=== PATIENT | male | born 1960 | race Caucasian/White ===

== ENCOUNTER → 2024-02-19 12:31 | Outpatient (REF) | payer OTHER, SELFPAY ==
--- NOTE | 2024-02-19 12:39 | CA_ITS ---
Transthoracic Echocardiogram Patient (Last, First, Middle): Chris Petty A Gender: Male Date of : 1960 Age: 63 Procedure Date: 02/19/2024 Procedure Type: Transthoracic Echocardiogram Location: OP Height: 172.72 cm Weight: 71.67 kg BSA: 1.85 m2 Heart Rate: 57 bpm BP: 142 / 85 mmHg Game Attendant: TAE Referring MD: Wesley HAUSER Symptoms: R06.02 SOB, EXERTIONAL DYSPNEA R06.09 Study Quality: Adequate ECG Rhythm: Bradycardia Conclusions: - The left ventricular systolic function is normal. The calculated ejection fraction is 60% by biplane method. - No obvious valvular pathology seen on this study. Findings Left Ventricle Normal left ventricular cavity size. There is normal left ventricular wall thickness. The left ventricular systolic function is normal. The calculated ejection fraction is 60% by biplane method. There is no evidence of regional wall motion abnormalities. Diastolic function is normal for age. Right Ventricle Mildly increased right ventricular cavity size. There is normal right ventricular systolic function. Atria Both atria are normal in size. Aortic Valve There is a normal trileaflet aortic valve. There is no aortic valve stenosis. There is no aortic valve regurgitation. Mitral Valve The mitral valve appears normal. There is no mitral valve regurgitation. There is no mitral valve stenosis. Pulmonic Valve The pulmonic valve is likely normal. Tricuspid Valve Normal tricuspid valve structure. There is trace tricuspid valve regurgitation. There is no evidence of pulmonary hypertension. Great Vessels The asc aorta is normal in size. Venous The inferior vena cava is normal in size and collapses greater than 50% with inspiration. Pericardium/Pleural There is no evidence of pericardial effusion. Prior Study Comparison No prior study available for comparison. Recommendations, Care & Conclusions No obvious valvular pathology seen on this study. Measurements 2D Linear Measurements IVSd: 1.00 0.6-0.9/0.6-1.0 cm LVIDd: 4.55 3.9-5.3/4.2-5.9 cm LVIDd Index: 2.46 2.4-3.2/2.2-3.1 cm/m2 LVIDs: 2.21 2.0-3.6 cm LVPWd: 1.03 0.7-1.1 cm LA Diam: 3.30 2.7-3.8/3.0-4.0 cm LAIDs Index: 1.78 1.5-2.3 cm/m2 LV Mass: 197.65 67-162/88-224 g LV Mass Index: 106.84 43-95/49-115 g/m2 LVOT Diam: 1.90 3.0+(-)1.3 cm 2D Systolic Function EF 4C: 58.10 >55% EF 2C: 61.70 >55% EF BiP: 59.80 >55% Mitral Valve MV Pk E: 0.74 MV PK A: 0.47 MV Decel Time: 183.00 E/A: 1.60 E'Lateral: 8.16 E'Medial: 6.42 E/E' Med: 11.50 E/E' Lat: 9.10 PHT: 54.00 MVA PHT: 4.07 Decel [place]: 4.05 Aortic Valve AoV Pk Manjinder: 1.35 AoV Mn Manjinder: 1.00 AoV VTI: 0.31 AoV Pk Grad: 7.00 Aov Mn Grad: 4.00 RICK Cont.VTI: 2.04 LVOT LVOT Pk Manjinder: 0.88 LVOT Mn Manjinder: 0.67 LVOT VTI: 0.22 LVOT Pk Grad: 3.00 LVOT Mn Grad: 2.00 LVOT Diam: 1.90 LVOT Area: 2.84 Diastolic Function MV Pk E: 0.74 MV Pk A: 0.47 E/A: 1.60 E'Medial: 6.42 E/E' Med: 11.50 E' Laterial: 8.16 E/E' Lat: 9.10 Right Ventricle TAPSE (mm): 23.60 TVS' Manjinder: 12.90 Tricuspid Valve TR Pk Manjinder: 1.46 TR Pk Grad: 9.00 RA Press: 3.00 RVSP: 12.00 Great Vessels Aorta Sinus of Valsalva: 3.30 2.0-3.5 cm Ao Asc: 3.10 2.1-3.4 cm Pulmonary Valve PV Pk Manjinder: 0.86 Peak PV Grad: 3.00 Updated in Other Vendor System with Status of Final Oscar Chilel MD electronically signed on 02/20/2024 8:14:19 AM with status of Final
== END ==
LOC: HO.CARD 12:31
PROVIDERS: PCP Physician Assistant Medical; Visit Provider Physician Assistant Medical
DX: R06.02 Shortness of breath (principal); R06.09 Other forms of dyspnea
CPT/HCPCS: 93306

== ENCOUNTER → 2024-02-19 12:39 | Outpatient (BNV) | payer OTHER, SELFPAY | PROVIDERS: PCP Physician Assistant Medical; Visit Provider Internal Medicine | DX: R06.02 Shortness of breath (principal) | CPT/HCPCS: 93306 ==